=== PATIENT | female | born 1990 | race Hispanic/Latino ===

== ENCOUNTER 2021-01-01 22:16 | Emergency (ER) ==
[2021-01-01] MEDS ORDERED: Fluorescein Opthalmic Strip ONE (23:39)
[2021-01-01] MEDS ORDERED: Proparacaine 0.5% Opth 15 ML BOT ONE (23:40)
== END 2021-01-02 00:12 | disposition home or self-care (01) ==
LOC: ERS 22:16
DX: H10.9 Unspecified conjunctivitis (principal)
CPT/HCPCS: 99282

== ENCOUNTER 2021-01-03 22:52 | Emergency (ER) | payer SELFPAY ==
[2021-01-03] MEDS ORDERED: Fluorescein Opthalmic Strip ONE (23:55)
[2021-01-03] MEDS ORDERED: Proparacaine 0.5% Opth 15 ML BOT ONE (23:56)
== END 2021-01-04 00:59 | disposition left against medical advice (07) ==
LOC: ERS 22:52
DX: H02.846 Edema of left eye, unspecified eyelid (principal); R51.9 Headache, unspecified; H53.8 Other visual disturbances
CPT/HCPCS: 99283

== ENCOUNTER 2021-08-12 10:18 | Emergency (ER) | payer MEDICAID, OTHER, SELFPAY ==
[2021-08-12 10:59] LABS: #Basophils 0.1 thou/uL (0.0-0.2); #Eosinphils 0.1 thou/uL (0.0-0.7); #Lymphocytes 1.7 thou/uL (1.20-3.40); #Monocytes 0.5 thou/uL (0.11-0.59); #Neutrophils 5.5 thou/uL (1.40-6.50); %Basophils 0.9 % (0.0-1.0); %Lymphocytes 21.9 % (21.0-51.0); %Monocytes 6.2 % (0.0-10.0); Hemoglobin 13.7 g/dL (12.0-16.0); Mean Corpuscular HGB CONC 33.8 g/dL (32.0-36.0); Mean Corpuscular Hemoglobin 31.8 pg (27.0-31.0); Mean Corpuscular Volume 93.9 fL (78.0-98.0); Mean Platelet Volume 8.4 fL (7.4-10.4); Platelet Count 209 thou/uL (130-400); RBC Distribution Width 12.1 % (11.5-14.5); Red Blood Cell (RBC) Count 4.31 mill/uL (4.20-5.40); White Blood Cell (WBC) Count 7.9 thou/uL (4.8-10.8)
[2021-08-12 11:26] LABS: ALT (SGPT) 11 U/L (8-55); AST (SGOT) 13 U/L (5-34); Albumin 4.2 g/dL (3.5-5.0); Alkaline Phosphatase 83 U/L (40-110); Anion Gap 14 mmol/L (10-20); BUN (Urea Nitrogen) 7 mg/dL (7.0-18.7); Bilirubin, Total 0.5 mg/dL (0.2-1.2); Calc. Creatinine Clearance 0 mL/min (70-130); Calcium 9.5 mg/dL (7.8-10.44); Carbon Dioxide 19 mmol/L (22-29); Chloride 109 mmol/L (98-107); Globulin 3.6 g/dL (2.4-3.5); Glucose 96 mg/dL (70-105); Potassium 3.8 mmol/L (3.5-5.1); Protein, Total 7.8 g/dL (6.0-8.3); Sodium 138 mmol/L (136-145)
== END 2021-08-12 14:11 | disposition home or self-care (01) ==
LOC: ERS 10:18
DX: O20.0 Threatened abortion (principal); Z3A.01 Less than 8 weeks gestation of pregnancy
CPT/HCPCS: 36415; 76856; 80053; 84702; 85025; 86900; 86901